=== PATIENT | female | born 1980 | race Hispanic/Latino ===

== ENCOUNTER 2019-04-05 15:03 | Emergency (ER) | payer OTHER | END 2019-04-05 16:14 | disposition home or self-care (01) | LOC: EDH 15:03 | DX: H61.23 Impacted cerumen, bilateral (principal) | CPT/HCPCS: 99281 ==

== ENCOUNTER 2025-05-28 23:40 | Emergency (ER) | payer OTHER ==
[~2025-05-28] VITALS: Ht 162.6 cm; Wt 71.2 kg
--- NOTE | 2025-05-28 23:43 | NUR ---
UA CUP PROVIDED
--- NOTE | 2025-05-28 23:56 | ERN ---
ED Note History of Present Illness Stated Complaint: ABSCESS Chief Complaint: Abscess Time Seen by MD: 23:55 Dictation: This is a 45-year-old female who presented to the emergency room with complaints of pain in her left side of the labia and vulva area. She stated that this started about a week and a half ago as an extremely small boil. It was increasing in size and had a small area in the middle which she stated that she popped and had drainage and it got worse since then. She reports pain and discomfort. She denied any fever chills or rigors. Temperature 98.6 pulse 94 respirations 20 blood pressure 140/74 with a pulse oximetry of 96% on room air Medical history significant for diabetes mellitus type 2 and she takes metformin Allergies: Coded Allergies: No Known Allergies (Unverified Allergy, Unknown, 04/05/19) Home Meds Active Scripts Clindamycin HCl (Clindamycin HCl) 300 Mg Capsule, 1 CAP PO QID for 10 Days, #40 CAP 0 Refills Prov:CINDY DEY MD 05/29/25 Past Medical History Past Medical History: Diabetes-Type II Surgical History: Family History: Negative Social History: Negative History: Not Applicable RN Note Reviewed/Agreed w/PFSH: Yes Review of System Dictation Constitutional: Negative for fever,chills, and weight loss Eyes: Negative for injury, pain,redness, and discharge ENT: Negative for injury,pain or swelling Cardiovascular: Negative for chest pain, palpitations, and edema Respiratory: Negative for shortness of breath, cough, and wheezing, Abdomen/GI: Negative for abdominal pain, nausea, vomiting, diarrhea, and constipation Back: Negative for injury and pain : Negative for injury, positive for a boil and swelling in her left vulvar area. She also reported drainage since she popped it MS/Extremity: Negative for injury and deformity Skin: Negative for rash, and discoloration Neuro: Negative for headache, weakness, numbness, tingling, and seizure Psych: Negative for suicide ideation, homicidal ideation, and hallucinations Initial Vital Sign VS Vital Signs Date Time Temp Pulse Resp B/P (MAP) Pulse Ox O2 Delivery O2 Flow Rate FiO2 05/28/25 23:42 98.6 96 20 140/74 96 Room Air 05/29/25 00:48 0 21 Physical Exam Dictation General: awake, alert, NAD Head/Face: Normocephalic, atraumatic Eyes: PERRL, EOMI, vision at baseline ENT: oral cavity clear, TMs clear, no signs of infection very poor dentition missing teeth Neck: Trachea midline, supple, no nuchal rigidity Cardiovascular: RRR, normal S1/S2, No MRGs, no JVD Respiratory: CTAB, no respiratory distress, No rales or wheezes Abdomen: Soft, non-tender, non-distended, normal bowel sounds, no guarding or rebound. Skin: Warm, dry, normal turgor, no rash [id number] labia major a a in the mid area about 2.5-3 cm indurated area with fluctuance and small amount of pus oozing out. Also erythema noted MS/Extremity: Pulses equal, no cyanosis, neurovascular intact, FROM Neuro: COAx4, GCS 15, strength 5/5, CN 2-12 intact, normal cerebellar exam, normal gait, Psych: Normal behavior, mood, and affect normal Extremities-trace edema without any palpable cords, Homans sign is negative ED Course ED Course Orders Procedure Category Date Status Time Lidocaine Hcl 1% 20ml PHA 05/29/25 Complete Vial (Lidocaine Hc 00:18 Ketorolac PHA 05/29/25 Complete Tromethamine 30mg/Ml 01:00 Clindamycin 150mg Cap PHA 05/29/25 Complete (Cleocin 150mg Cap 01:00 Current Medications Medications (Trade) Dose Ordered Sig/Uvaldo Route PRN Reason Start Time Stop Time Status Last Admin Dose Admin Clindamycin HCl (Cleocin 150mg Cap) 300 mg ONCE ONCE PO 05/29/25 01:00 05/29/25 01:01 DC 05/29/25 00:54 Ketorolac Tromethamine (toRADol) 30 mg ONCE ONCE IM 05/29/25 01:00 05/29/25 01:01 DC 05/29/25 00:54 Lidocaine HCl (Lidocaine HCl 1% 20ml Vial) 20 ml STK-MED ONCE .ROUTE 05/29/25 00:18 05/29/25 00:18 DC 05/29/25 00:54 Vital Signs Date Time Temp Pulse Resp B/P (MAP) Pulse Ox O2 Delivery O2 Flow Rate FiO2 05/29/25 00:48 98.4 90 16 127/78 96 Room Air* 0 21 05/28/25 23:42 98.6 96 20 140/74 96 Room Air We will administer medications according to the patient's complaint. I also explained to her about incision and drainage and antibiotic therapy. Medical Decision Making MDM Differential diagnosis: Boil, furuncle, carbuncle, erysipelas, abscess, Vishnu gangrene This is a 45-year-old female who presented to the emergency room with complaints of pain in her left side of the labia and vulva area. She stated that this started about a week and a half ago as an extremely small boil. It was increasing in size and had a small area in the middle which she stated that she popped and had drainage and it got worse since then. She reports pain and discomfort. She denied any fever chills or rigors. Temperature 98.6 pulse 94 respirations 20 blood pressure 140/74 with a pulse oximetry of 96% on room air Medical history significant for diabetes mellitus type 2 and she takes metformin Patient began feeling extremely comfortable and pain resolved after the incision and drainage. A dose of antibiotic and pain medication administered. Discharge to home to follow up with her primary care physician and instructions to return to ER should she have any worsening. Previous outside records reviewed: No Old ER visits. Risk of complication and/or morbidity or mortality of patient management: As outlined in the procedure note. Medications-Per medication reconciliation Need for hospitalization: Patient does not meet criteria for hospitalization. Need for emergency major/minor surgery: Yes incision and drainage There are no social concerns with this patient. Prescription drug management Prescriptions will include symptomatic care and antibiotics Procedure Site: Left labia majora Blade Size: 11 I & D Procedure: no betadine prepno sterile drapes appliedno sterile dressing applied Progress PROCEDURE NOTE- Incision drainage of left-sided labia majora [id number] labia majora PERFORMING PHYSICIAN-Dr. Dey ANESTHESIA-1% lidocaine solution for local anesthesia. INDICATION- 2.5 by 3 cm abscess with induration palpable fluctuance Informed consent--informed consent was obtained from the patient. Risks benefits alternatives and outcomes were discussed (inadequate anesthesia, pain during and after the procedure, bleeding, recurrence of the abscess, septic thro mbophlebitis, necrotizing fasciitis, fistula formation, damage to the nerves or vessels and scarring. and the fact that the abscess size is about 3 cm with fluctuance I recommended incision and drainage as the 1st step. Patient verbalized full understanding and wished to proceed. PROCEDURE- After obtaining an informed consent universal precautions were used. The area was prepped with a chlorhexidine solution extensively and sterile towels were placed. Local anesthetic was used to infiltrate around and under the tissue surrounding the abscess. A linear incision was made at the most protruding part with a 11. Blade into the abscess. The purulent material was allowed to drain from the abscess and gentle probing of the abscess was done with a curved hemostat to break up the loculations. Manually I have attempted to express the purulent material from the abscess for the next 10 minutes with gentle massaging. The wound was dressed with a sterile gauze and tape. COMPLICATIONS-none immediate. Patient tolerated the procedure well and the abscess size was markedly reduced after the drainage. POST PROCEDURE INSTRUCTIONS--keep the wound clean and dry and cover with the absorbent material Patient needs to continue course of clindamycin for the next 10 days Patient can return to the ER if any worsening Change the overlying dressing once a day Pain medications [id number] as directed. Problem List Problem List: (1) Vulvar abscess (2) Diabetes mellitus DX & DISP Disposition: Discharge Departure Impression: Primary Impression: Vulvar abscess Additional Impression: Diabetes mellitus Condition: Stable Scripts Clindamycin HCl (Clindamycin HCl) 300 Mg Capsule 1 CAP PO QID for 10 Days, #40 CAP 0 Refills Prov: CINDY DEY MD 05/29/25 Additional Instructions: Patient and the caregiver have been informed of all the diagnostic tests and the imaging conducted during the today's visit to the emergency room and has sudha balized understanding of the results I have personally reviewed and interpreted all diagnostic exams performed here in the ER today as well as the vital signs documented by the nursing staff. The patient is now being discharged to home and should follow up with the primary care physician or the specialist as directed by the ER staff. I counseled her extensively on hygiene, wound care and instructions to return to the ER should her abscess in the left labia worsen. She also she would return if she has a fever chills or any other new symptoms. Referrals: SELF,REFERRAL (PCP) CINDY DEY MD May 28, 2025 23:56
[2025-05-29] MEDS ORDERED: CLIN-141 PO (00:44)
[2025-05-29] MEDS: CLINDAMYCIN 150 MG CAP PO ONE (00:54)
[2025-05-29] MEDS: LIDOCAINE HCL 1% 20 ML VIAL ONE (00:54)
[2025-05-29 01:55] VITALS: BP 123/70; PULSE 79; RESP 16; TEMP 99; O2SAT 94
== END 2025-05-29 01:56 | disposition home or self-care (01) ==
LOC: EDH 23:40
DX: N76.4 Abscess of vulva (principal); E11.9 Type 2 diabetes mellitus without complications; Z98.890 Other specified postprocedural states
CPT/HCPCS: 99284; 56405; 96372; J1885

== ENCOUNTER 2025-06-22 08:04 | Emergency (ER) | payer OTHER ==
[~2025-06-22] VITALS: Ht 162.6 cm; Wt 71.7 kg
[~2025-06-22 08:04] MED LIST: CLIN-141 PO
[2025-06-22 08:27] LABS: RAPID GROUP A STREP negative (NEGATIVE)
[2025-06-22 08:35] LABS: COVID19 (SARS ANTIGEN RAPID) PRESUMPTIVE NEGATIVE (NEGATIVE)
[2025-06-22 08:36] LABS: INFLUENZA TYPE A Negative For Type A (NEGATIVE); INFLUENZA TYPE B Negative For Type B (NEGATIVE)
--- NOTE | 2025-06-22 08:46 | ERN ---
ED Note History of Present Illness Stated Complaint: COUGH Chief Complaint: Cough Time Seen by MD: 08:07 Dictation: Patient is a 45-year-old female who presented to the ER complaining of upper respiratory symptoms cough, chills. Allergies: Coded Allergies: No Known Allergies (Unverified Allergy, Unknown, 04/05/19) Home Meds Active Scripts Ibuprofen (Ibuprofen) 400 Mg Tablet, 1 TAB PO TID for pain or fever for 10 Days, #30 TAB 0 Refills Prov:SUBHASH NEWBY MD 06/22/25 Guaifenesin (Guaifenesin) 100 Mg/5 Ml Liq, 5-10 ML PO QID for cough for 6 Days, #240 ML 0 Refills Prov:SUBHASH NEWBY MD 06/22/25 Amoxicillin/Potassium Clav (Amox Tr-K Clv 875-125 mg Tab) 875 Mg-125 Mg Tablet, 1 TAB PO BID for 5 Days, #20 TAB 0 Refills Prov:SUBHASH NEWBY MD 06/22/25 Clindamycin HCl (Clindamycin HCl) 300 Mg Capsule, 1 CAP PO QID for 10 Days, #40 CAP 0 Refills Prov:CINDY DEY MD 05/29/25 Past Medical History Past Medical History: Diabetes-Type II Surgical History: Family History: Negative Social History: Negative History: Not Applicable Review of System Dictation NEGATIVE EXCEPT PER HPI Constitutional: Chills Eyes: Negative for injury, pain,redness, and discharge ENT: Negative for injury,pain or swelling Cardiovascular: denies chest pain, palpitations, and edema Respiratory: Cough Abdomen/GI: Negative for abdominal pain, nausea, vomiting, diarrhea, and constipation Back: Negative for injury and pain : Negative for injury, bleeding and discharge MS/Extremity: Negative for injury and deformity Skin: Negative for rash, and discoloration Neuro: Negative for headache, weakness, numbness, tingling, and seizure Psych: Negative for suicide ideation, homicidal ideation, and hallucinations Initial Vital Sign VS Vital Signs Date Time Temp Pulse Resp B/P (MAP) Pulse Ox O2 Delivery O2 Flow Rate FiO2 06/22/25 08:05 98.4 89 16 131/73 98 Room Air 06/22/25 09:34 0 21 Physical Exam Dictation General: awake, alert, NAD Head/Face: Normocephalic, atraumatic Eyes: PERRL, EOMI, vision at baseline ENT: oral cavity clear, TMs clear, no signs of infection Neck: Trachea midline, supple, no nuchal rigidity Cardiovascular: RRR, normal S1/S2, No MRGs, no JVD Respiratory: CTAB, no respiratory distress, No rales or wheezes Abdomen: Soft , no tender Skin: Warm, dry, normal turgor, no rash MS/Extremity: Pulses equal, no cyanosis, neurovascular intact, FROM Neuro: COAx4, GCS 15, strength 5/5, CN 2-12 intact, normal cerebellar exam, normal gait, Psych: Normal behavior, mood, and affect normal Results (Laboratory/Radiology) Laboratory/Radiology Laboratory Tests Test 06/22/25 08:08 06/22/25 09:47 06/22/25 10:42 06/22/25 11:34 Influenza Type A Antigen Negative For Type A Influenza Type B Antigen Negative For Type B SARS-CoV-2 Antigen (Rapid) PRESUMPTIVE NEGATIVE Group A Streptococcus Rapid negative (NEGATIVE) White Blood Count 5.3 K/uL (4.8-10.8) Red Blood Count 5.31 MIL/uL (4.00-5.50) Hemoglobin 14.0 g/dL (12.0-16.0) Hematocrit 44.1 % (36-48) Mean Corpuscular Volume 83.1 fL (79-99) Mean Corpuscular Hemoglobin 26.4 pg (27.0-33.0) L Mean Corpuscular Hemoglobin Concent 31.7 g/dL (32.0-36.0) L Red Cell Distribution Width 14.6 % (11.0-15.5) Platelet Count 192 K/uL (130-400) Mean Platelet Volume 10.7 fL (7.5-10.5) H Immature Granulocyte % (Auto) 0.4 % (0-1) Neutrophils (%) (Auto) 63.7 % (40.0-77.0) Lymphocytes (%) (Auto) 21.6 % (21.0-51.0) Monocytes (%) (Auto) 7.9 % (3.0-13.0) Eosinophils (%) (Auto) 6.0 % (0.0-8.0) Basophils (%) (Auto) 0.4 % (0.0-5.0) Neutrophils # (Auto) 3.4 K/uL (1.8-7.7) Lymphocytes # (Auto) 1.1 K/uL (1.0-4.8) Monocytes # (Auto) 0.4 K/uL (0.1-1.0) Eosinophils # (Auto) 0.32 K/uL (0.00-0.70) Basophils # (Auto) 0.02 K/uL (0.00-0.20) Absolute Immature Granulocyte (auto 0.02 K/uL (0-1) Nucleated Red Blood Cells 0.0 % (0.0-0.19) Sodium Level 133 mmol/L (136-145) L Potassium Level 3.5 mmol/L (3.5-5.1) Chloride Level 99 mmol/L (101-111) L Carbon Dioxide Level 24 mmol/L (21-32) Blood Urea Nitrogen 7 mg/dL (7-18) Creatinine 0.7 mg/dL (0.5-1.0) Glomerular Filtration Rate Calc 107 mL/min (>90) Random Glucose 431 mg/dL (70-105) *H Total Calcium 8.7 mg/dL (8.5-10.1) Whole Blood Glucose 398 MG/DL (70-110) H 315 MG/DL (70-110) H ED Course ED Course Orders Procedure Category Date Status Time Influenza Type A & B, LAB 06/22/25 Complete Rapid 08:07 Covid19 (Sars Antigen LAB 06/22/25 Complete Rapid) 08:07 Rapid (Group A Strep) LAB 06/22/25 Complete 08:07 Guaifenesin Sug-Carmelo PHA 06/22/25 Complete 100 Mg/5ml (Robituss 08:30 Ipratropium/Albuterol PHA 06/22/25 Complete Neb (Duoneb) 08:30 Cbc With Differential LAB 06/22/25 Complete 09:30 Basic Metabolic Panel LAB 06/22/25 Complete 09:30 Chest 1vw RAD 06/22/25 Resulted 09:30 Insulin Regular, PHA 06/22/25 Complete Human 3ml (Humulin R 11:00 0.9%Nacl 1000ml (Ns PHA 06/22/25 Complete 1000ml) 12:00 Current Medications Medications (Trade) Dose Ordered Sig/Uvaldo Route PRN Reason Start Time Stop Time Status Last Admin Dose Admin Albuterol (DUOneb) 1 udvial ONCE ONCE IH 06/22/25 08:30 06/22/25 08:31 DC 06/22/25 08:55 Guaifenesin (RobiTUSSin SUGAR-FREE 100 MG/ 5 ML UDCUP) 200 mg ONCE ONCE PO 06/22/25 08:30 06/22/25 08:31 DC 06/22/25 10:39 Insulin Human Regular (humuLIN R 100 UNIT/ML 3ML) 10 unit ONCE ONCE IV 06/22/25 11:00 06/22/25 11:01 DC 06/22/25 10:54 Sodium Chloride 1,000 ml @ 0 mls/hr ONCE ONCE IV 06/22/25 12:00 06/22/25 12:01 DC Vital Signs Date Time Temp Pulse Resp B/P (MAP) Pulse Ox O2 Delivery O2 Flow Rate FiO2 06/22/25 12:03 98.4 86 20 116/70 97 Room Air* 0 21 06/22/25 09:34 99.0 88 20 122/74 96 Room Air* 0 21 06/22/25 08:53 88 18 06/22/25 08:05 98.4 89 16 131/73 98 Room Air Medical Decision Making MDM Upper respiratory symptoms COVID, flu, strep DuoNeb ordered Guaifenesin ordered Patient is a glucose level was elevated above 400 10 units IV insulin given Patient does have history of diabetes mellitus taking metformin 1000 mg daily, recommendation is to taking metformin 1000 mg b.i.d. and follow up with the PCP for further management of diabetes mellitus. Patient will be sent home on conservative management for upper respiratory inf ection. DX & DISP Disposition: Discharge Departure Impression: Primary Impression: Respiratory infection Additional Impressions: Respiratory infection, upper, Hyperglycemia due to diabetes mellitus Condition: Stable Scripts Ibuprofen (Ibuprofen) 400 Mg Tablet 1 TAB PO TID for pain or fever for 10 Days, #30 TAB 0 Refills Prov: SUBHASH NEWBY MD 06/22/25 Guaifenesin (Guaifenesin) 100 Mg/5 Ml Liq 5-10 ML PO QID for cough for 6 Days, #240 ML 0 Refills Prov: SUBHASH NEWBY MD 06/22/25 Amoxicillin/Potassium Clav (Amox Tr-K Clv 875-125 mg Tab) 875 Mg-125 Mg Tablet 1 TAB PO BID for 5 Days, #20 TAB 0 Refills Prov: SUBHASH NEWBY MD 06/22/25 Additional Instructions: RETURN TO ER FOR ANY ACUTE OR WORSENING SYMPTOMS. FOLLOW-UP IN 1-2 DAYS WITH PRIMARY PROVIDER FOR RECHECK OF TODAY'S SYMPTOMS. Referrals: SELF,REFERRAL (PCP) SUBHASH NEWBY MD Jun 22, 2025 08:45
[2025-06-22 08:53] VITALS: PULSE 88; RESP 18
[2025-06-22 09:50] LABS: IMMATURE GRANULOCYTE ABSOLUTE 0.02 K/uL (0-1); NUCLEATED RED BLOOD CELLS 0.0 % (0.0-0.19); PLATELET COUNT (AUTO) 192 K/uL (130-400); RED BLOOD CELL COUNT(AUTO) 5.31 MIL/uL (4.00-5.50); RED CELL DISTRIBUTION WIDTH 14.6 % (11.0-15.5); WHITE BLOOD COUNT (AUTO) 5.3 K/uL (4.8-10.8)
[2025-06-22 10:17] LABS: CREATININE 0.7 mg/dL (0.5-1.0); GLOMERULAR FILTR. RATE CALC 107.0 mL/min (>90); SODIUM SERUM 133.0 mmol/L (136-145); UREA NITROGEN, BLOOD 7.0 mg/dL (7-18)
[2025-06-22 10:28] LABS: GLUCOSE,RANDOM 431.0 mg/dL (70-105)
--- NOTE | 2025-06-22 10:31 | HMCIMG ---
EXAM: CR Chest, 1 View. CLINICAL HISTORY: pneumonia COMPARISON: None provided. FINDINGS: LUNGS: There is no mass, infiltrate, or acute pulmonary abnormality. PLEURAL SPACES: No pleural effusion or pneumothorax. MEDIASTINUM: The cardiomediastinal silhouette is within normal limits. BONES: No acute osseous abnormality. IMPRESSION: No acute cardiopulmonary pathology is evident. /[place]
[2025-06-22] MEDS ORDERED: 0.9%NACL 1000ML 1,000 ML IV ONE (12:00)
[2025-06-22 12:03] VITALS: BP 116/70; PULSE 86; RESP 20; TEMP 98.4; O2SAT 97
[2025-06-22] MEDS ORDERED: IBUP-2076 PO (12:08)
[2025-06-22] MEDS ORDERED: AMOX1TAB16 PO (12:08)
[2025-06-22] MEDS ORDERED: GUAI100S13 PO (12:08)
== END 2025-06-22 12:24 | disposition home or self-care (01) ==
LOC: EDH 08:04
DX: J06.9 Acute upper respiratory infection, unspecified (principal); E11.65 Type 2 diabetes mellitus with hyperglycemia; Z79.1 Long term (current) use of non-steroidal anti-inflammatories (NSAID); Z98.890 Other specified postprocedural states; Z20.822 Contact with and (suspected) exposure to COVID-19
CPT/HCPCS: 99284; 96374; 71045; 87426; 80048; 85025; 87880; 87804 ×2; 82948 ×2; 36415; 94640; J1815